=== PATIENT | female | born 1995 | race African-American/Black ===

== ENCOUNTER 2016-08-03 20:24 | Emergency (ER) | payer SELFPAY ==
[~2016-08-03] VITALS: Ht 170.2 cm; Wt 120.0 kg
[2016-08-03 20:25] VITALS: BP 176/112; PULSE 78; RESP 16; TEMP 98.6; O2SAT 98
[2016-08-03] MEDS ORDERED: SODIUM CHLOR 0.9% 1000 ML INJ 1,000 ML IV SCH (23:36)
[2016-08-03] MEDS ORDERED: SODIUM CHLORIDE 0.9% FLUSH 5 ML FLUSH IVF PRN (23:45)
[2016-08-04 00:29] LABS: BACTERIA, URINE RARE /hpf; BLOOD, URINE NEG (NEG); COMMENT (UR) CULT NOT INDICATED; CULTURE IF INDICATED CULT NOT INDICATED; GLUCOSE,URINE NEG (NEG); KETONE, URINE NEG (NEG); MUCUS URINE FEW /lpf (OCC); NITRITE,URINE NEG (NEG); PH, URINE 6.5 (5.0-8.5); SQUAMOUS EPITHELIAL CELL URINE 5 /hpf (0-5); URINE COLOR YELLOW (YELLW/STRAW)
[2016-08-04 00:42] LABS: AUTOMATED NEUTROPHIL # 6.8 TH/MM3 (1.8-7.7); BASOPHIL # 0.1 TH/MM3 (0-0.2); BASOPHIL % 0.8 % (0.0-2.0); EOSINOPHIL # 0.3 TH/MM3 (0-0.4); EOSINOPHIL % 2.4 % (0.0-4.0); HEMATOCRIT 40.1 % (35.0-46.0); HEMO FLAGS DIFF FINAL; LYMPH % 29.4 % (9.0-44.0); LYMPHOCYTE # 3.2 TH/MM3 (1.0-4.8); MEAN CELL VOLUME 84.8 FL (80.0-100.0); MEAN CORPUSCULAR HEMOGLOBIN 28.2 PG (27.0-34.0); MEAN CORPUSCULAR HGB CONC 33.2 % (32.0-36.0); MONO % 5.2 % (0.0-8.0); NEUT % 62.2 % (16.0-70.0); PLATELET COUNT 248 TH/MM3 (150-450); RED BLOOD COUNT 4.73 MIL/MM3 (4.00-5.30); RED CELL DISTRIBUTION WIDTH 13.9 % (11.6-17.2)
[2016-08-04 00:50] LABS: ALT (GPT) 56 U/L (9-42); ANION GAP 7 MEQ/L (5-15); AST (GOT) 22 U/L (16-38); BICARBONATE 28.2 MEQ/L (21.0-32.0); BLOOD UREA NITROGEN 7 MG/DL (7-18); CHLORIDE 105 MEQ/L (98-107); GLOMERULAR FILTRATION RATE 116 ML/MIN (>89); POTASSIUM 3.6 MEQ/L (3.5-5.1); SODIUM (NA) 140 MEQ/L (136-145)
[2016-08-04 00:53] LABS: ALKALINE PHOSPHATASE 135 U/L (45-117); TOTAL BILIRUBIN ADULT 0.5 MG/DL (0.2-1.0)
--- NOTE | 2016-08-04 01:14 | PD ---
HPI Chief Complaint: General Weakness Time Seen by Provider: 23:07 Travel History International Travel<30 days: No Contact w/Intl Traveler<30days: No Traveled to known affect area: No History of Present Illness HPI 21-year-old female arrives to the ER complaining of a state of exhaustion in which she does not desire to do anything in particular. She describes some back pain that radiates to the stomach. She has nausea. She's had no vomiting or fever. No urinary complaint is disclosed. No diarrhea. Appetite is decreased as has been oral intake and oral hydration generally. No abnormal vaginal bleeding or discharge reported. Last menstruation was 2 weeks prior and was slightly longer than normal however uncomplicated otherwise. Symptoms began about a day and a half prior. It was difficult for her to work for about the course of today at a [employer]. [facility] Past Medical History Medical History: Denies Significant Hx ?: Not LMP: 07/24/2016 Past Surgical History Surgical History: No Previous Surgery Social History Alcohol Use: Yes Tobacco Use: Yes Substance Use: Yes (mj OCCASIONALY ) Allergies-Medications (Allergen,Severity, Reaction): Coded Allergies: No Known Allergies (Unverified , 08/03/16) Reported Meds & Prescriptions Reported Meds & Active Scripts Active No Active Prescriptions or Reported Medications Review of Systems Except as stated in HPI: all other systems reviewed are Neg General / Constitutional: No: Fever Gastrointestinal: Positive: Nausea, Abdominal Pain, No: Diarrhea Genitourinary: No: Urgency, Frequency, Discharge, Vaginal Bleeding Physical Exam Narrative GENERAL: 21-year-old female pleasant well-nourished well-developed, BMI 41 SKIN: Warm and dry. HEAD: Atraumatic. Normocephalic. EYES: Pupils equal and round. No scleral icterus. No injection or drainage. ENT: No nasal bleeding or discharge. Mucous membranes pink and moist. NECK: Trachea midline. No JVD. CARDIOVASCULAR: Regular rate and rhythm. No murmur appreciated. RESPIRATORY: No accessory muscle use. Clear to auscultation. Breath sounds equal bilaterally. GASTROINTESTINAL: Abdomen soft, non-tender, nondistended. Hepatic and splenic margins not palpable. Minimal tenderness in the right upper quadrant with abdomen otherwise soft. MUSCULOSKELETAL: No obvious deformities. No clubbing. No cyanosis. No edema. NEUROLOGICAL: Awake and alert. No obvious cranial nerve deficits. Motor grossly within normal limits. Normal speech. PSYCHIATRIC: Appropriate mood and affect; insight and judgment normal. Data Data Last Documented VS Vital Signs Date Time Temp Pulse Resp B/P Pulse Ox O2 Delivery O2 Flow Rate FiO2 08/04/16 01:20 70 16 133/78 98 Room Air 08/03/16 20:25 98.6 Vital signs reviewed. The blood pressure has improved during the patient's ER course. Orders Complete Blood Count With Diff (08/03/16 23:36) Comprehensive Metabolic Panel (08/03/16 23:36) Lipase (08/03/16 23:36) Urinalysis - C+S If Indicated (08/03/16 23:36) Iv Access Insert/Monitor (08/03/16 23:36) Ecg Monitoring (08/03/16 23:36) Oximetry (08/03/16 23:36) Sodium Chlor 0.9% 1000 Ml Inj (Ns 1000 M (08/03/16 23:36) Sodium Chloride 0.9% Flush (Ns Flush) (08/03/16 23:45) Ed Urine Pregnancytest Poc (08/03/16 23:36) Labs Laboratory Tests Test 08/03/16 23:59 White Blood Count 11.0 TH/MM3 Red Blood Count 4.73 MIL/MM3 Hemoglobin 13.3 GM/DL Hematocrit 40.1 % Mean Corpuscular Volume 84.8 FL Mean Corpuscular Hemoglobin 28.2 PG Mean Corpuscular Hemoglobin 33.2 % Concent Red Cell Distribution Width 13.9 % Platelet Count 248 TH/MM3 Mean Platelet Volume 9.8 FL Neutrophils (%) (Auto) 62.2 % Lymphocytes (%) (Auto) 29.4 % Monocytes (%) (Auto) 5.2 % Eosinophils (%) (Auto) 2.4 % Basophils (%) (Auto) 0.8 % Neutrophils # (Auto) 6.8 TH/MM3 Lymphocytes # (Auto) 3.2 TH/MM3 Monocytes # (Auto) 0.6 TH/MM3 Eosinophils # (Auto) 0.3 TH/MM3 Basophils # (Auto) 0.1 TH/MM3 CBC Comment DIFF FINAL Differential Comment Urine Color YELLOW Urine Turbidity HAZY Urine pH 6.5 Urine Specific [place] 1.021 Urine Protein TRACE mg/dL Urine Glucose (UA) NEG mg/dL Urine Ketones NEG mg/dL Urine Occult Blood NEG Urine Nitrite NEG Urine Bilirubin NEG Urine Urobilinogen 2.0 MG/DL Urine Leukocyte Esterase NEG Urine WBC 1 /hpf Urine Squamous Epithelial 5 /hpf Cells Urine Bacteria RARE /hpf Urine Mucus FEW /lpf Microscopic Urinalysis Comment CULT NOT INDICATED Sodium Level 140 MEQ/L Potassium Level 3.6 MEQ/L Chloride Level 105 MEQ/L Carbon Dioxide Level 28.2 MEQ/L Anion Gap 7 MEQ/L Blood Urea Nitrogen 7 MG/DL Creatinine 0.77 MG/DL Estimat Glomerular Filtration 116 ML/MIN Rate Random Glucose 78 MG/DL Calcium Level 9.1 MG/DL Total Bilirubin 0.5 MG/DL Aspartate Amino Transf 22 U/L (AST/SGOT) Alanine Aminotransferase 56 U/L (ALT/SGPT) Alkaline Phosphatase 135 U/L Total Protein 8.3 GM/DL Albumin 3.9 GM/DL Lipase 87 U/L [facility] Medical Decision Making Medical Screen Exam Complete: Yes Emergency Medical Condition: Yes Medical Record Reviewed: Yes Differential Diagnosis UTI anemia electronimbalance Narrative Course CBC & BMP Diagram 08/03/16 23:59 ALT 56 Alk phos 135 Lipase 83 UA no cystitis The patient is resting comfortably and feels better, is alert and in no distress. The patients results and examination findings were discussed. The repeat examination is unremarkable and benign. The history, exam, diagnostic testing, and current condition do not suggest any significant pathology to warrant further testing, continued ED treatment, admission, or surgical evaluation at this point. The vital signs have been stable. The patient does not have uncontrollable pain, intractable vomiting, or other significant symptoms. The patient's condition is stable and appropriate for discharge. The patient will pursue further outpatient evaluation with a primary care physician or other designated or consulting physician as indicated in the discharge instructions. The patient expressed understanding and was agreeable with this plan. Diagnosis Primary Impression: Malaise and fatigue Additional Impressions: Nausea Abdominal pain Qualified Code: R10.9 - Abdominal pain, unspecified location Referrals: Dahiana Vann MD 2 days Additional Instructions: You have a choice when it comes to health care, and we are glad that you chose [facility]. Hopefully, we have met your expectations on today's visit. You are welcome to return to [facility] at any time, as we are committed to meeting the health care needs of our community. Med/Other Pt SpecificInfo: No Change to Meds Scripts No Active Prescriptions or Reported Meds Disposition: 01 DISCHARGE HOME Condition: Erasmo Vernon MD Aug 04, 2016 01:14
[2016-08-04 01:20] VITALS: BP 133/78; PULSE 70; RESP 16; O2SAT 98
== END 2016-08-04 01:42 | disposition home or self-care (01) ==
LOC: NEPC 20:24
DX: R53.83 Other fatigue (principal); R53.81 Other malaise; R11.0 Nausea; R10.11 Right upper quadrant pain; Z72.0 Tobacco use
CPT/HCPCS: 80053; 81001; 83690; 84703; 85025; 99283; J7030

== ENCOUNTER 2016-10-11 12:37 | Emergency (ER) | payer SELFPAY ==
[~2016-10-11] VITALS: Ht 170.2 cm; Wt 121.5 kg
[2016-10-11 12:39] VITALS: PULSE 80; RESP 16; TEMP 97.9; O2SAT 98
--- NOTE | 2016-10-11 12:45 | PD ---
Physical Exam Date Seen by Provider: October 11, 2016 Time Seen by Provider: 12:43 Narrative 21 YOBF YEST WITH COUGH,CONGESTION FEELING COLD AND RUN DOWN. POS DIARRHEA. NO N /V, DYSURIA VVS WAITING FOR BED PLACEMENT Data Data Last Documented VS Vital Signs Date Time Temp Pulse Resp B/P Pulse Ox O2 Delivery O2 Flow Rate FiO2 10/11/16 12:39 97.9 80 16 98 MDM Medical Record Reviewed: Yes Supervised Visit with KATHY: No Scripts No Active Prescriptions or Reported Meds Serge Gutierrez October 11, 2016 12:45
[2016-10-11] MEDS ORDERED: FLUT1SPR5 EACH NARE (12:59)
--- NOTE | 2016-10-11 12:59 | PD ---
HPI . cough and congestion for several days Chief Complaint: Cold / Flu Symptoms Time Seen by Provider: 12:55 Travel History International Travel<30 days: No Contact w/Intl Traveler<30days: No Traveled to known affect area: No History of Present Illness HPI 21-year-old female with no significant past medical history here with cough and congestion for the past several days. Patient reports that her cough is dry in nature and she has been coughing intermittently. She tells me that she is tried [id number] medications such as DayQuil/NyQuil and they've made her worse. She denies any fever or chills. She tells me that she feels sick, therefore she decided to come to the emergency department. PFSH Past Medical History ?: Not LMP: 09/23/16 Social History Alcohol Use: Yes Tobacco Use: Yes Substance Use: Yes (mj OCCASIONALY ) Allergies-Medications (Allergen,Severity, Reaction): Coded Allergies: No Known Allergies (Unverified , 10/11/16) Reported Meds & Prescriptions Reported Meds & Active Scripts Active Flonase Nasal [place] (Fluticasone Nasal [place]) 50 Mcg/Act [place] 50 Mcg EACH NARE BID Review of Systems General / Constitutional: No: Fever Eyes: No: Visual changes HENT: Positive: Congestion, No: Headaches Cardiovascular: No: Chest Pain or Discomfort Respiratory: Positive: Cough (dry), No: Shortness of Breath Gastrointestinal: No: Abdominal Pain Genitourinary: No: Dysuria Musculoskeletal: No: Pain Skin: No Rash Neurologic: No: Weakness Psychiatric: No: Depression Endocrine: No: Polydipsia Hematologic/Lymphatic: No: Easy Bruising Physical Exam Narrative GENERAL: AAO x 3, no acute distress, Well-nourished, well-developed patient. SKIN: Warm and dry. No visible rashes or bruising. HEAD: Normocephalic and atraumatic. EYES: No scleral icterus. No injection or drainage. EOM intact, PERRLA ENT:Mucous membranes pink. Airway patent. Mild postnasal drip on examination. No posterior pharynx erythema, edema or exudates. TMs normal bilaterally. Clear nasal drainage. NECK: Supple, trachea midline. No JVD. No lymphadenopathy CARDIOVASCULAR: Regular rate and rhythm without murmurs, gallops, or rubs. RESPIRATORY: Breath sounds equal bilaterally. No accessory muscle use. No rhonchi or rales. No wheezing GASTROINTESTINAL: Abdomen soft, non-tender, nondistended. EXTREMITIES: No cyanosis or edema. BACK: Nontender without obvious deformity. No CVA tenderness. PSYCH: AAO x 3, normal affect. Data Data Last Documented VS Vital Signs Date Time Temp Pulse Resp B/P Pulse Ox O2 Delivery O2 Flow Rate FiO2 10/11/16 12:56 Room Air 10/11/16 12:39 97.9 80 16 98 MDM Medical Decision Making Medical Screen Exam Complete: Yes Emergency Medical Condition: Yes Medical Record Reviewed: Yes Differential Diagnosis Allergic rhinitis, sinusitis, less likely bacterial sinusitis, less likely pneumonia, less likely influenza Narrative Course This is a 21-year-old female presenting with cough and congestion. Examination was done and reveals no significant finding except for some mild postnasal drip. This appears to be an allergic rhinitis. She can possibly have an underlying virus, but I do not suspect influenza. I will treat her with Flonase. I've advised her to establish with primary care provider for further workup and treatment. I advised her to return to the emergency department if her symptoms return or worsen. Patient verbalized understanding of instructions, questions were answered, and thanked me for their care. I advised them if their condition worsens, please return to the nearest emergency room for further care. Diagnosis Primary Impression: Allergic rhinitis Qualified Code: J30.9 - Allergic rhinitis, unspecified allergic rhinitis trigger, unspecified rhinitis seasonality Additional Impression: Viral infection, unspecified Patient Instructions: Allergic Rhinitis (ED), General Instructions Additional Instructions: Please return to emergency department if your symptoms return or worsen. Follow up with your primary care provider. Take medications as prescribed. As we discussed, please follow-up with your primary care provider. Med/Other Pt SpecificInfo: Prescription(s) given Scripts Fluticasone Nasal [place] (Flonase Nasal [place])50 Mcg/Act Spray50 Mcg EACH NARE BID #1 BOTTLE Ref 0 Prov:Timothy Gutierres MD 10/11/16 Disposition: 01 DISCHARGE HOME Condition: Stable Sonal Waldrop October 11, 2016 12:59
== END 2016-10-11 13:15 | disposition home or self-care (01) ==
LOC: NEPK 12:37
DX: J30.9 Allergic rhinitis, unspecified (principal); B34.9 Viral infection, unspecified; Z72.0 Tobacco use
CPT/HCPCS: 99283

== ENCOUNTER 2016-10-28 22:03 | Emergency (ER) | payer SELFPAY ==
[~2016-10-28 22:03] MED LIST: FLUT1SPR5 EACH NARE
[2016-10-28 22:07] VITALS: BP 139/71; PULSE 92; RESP 16; TEMP 98; O2SAT 98
[2016-10-28 23:25] VITALS: BP 140/101; PULSE 78; RESP 18; O2SAT 98
[2016-10-28] MEDS ORDERED: SODIUM CHLOR 0.9% 1000 ML INJ 1,000 ML IV SCH (23:38)
[2016-10-28] MEDS ORDERED: FAMOTIDINE 20 MG/2 ML VIAL IV PUSH ONE (23:45)
[2016-10-28] MEDS ORDERED: ONDANSETRON HCL 4 MG/2 ML VIAL IVP ONE (23:45)
[2016-10-28] MEDS ORDERED: ALUMINUM/MAGNESIUM/SIMETH 30 ML CUP PO ONE (23:45)
[2016-10-28] MEDS ORDERED: LIDOCAINE VISCOUS 2% SOLN 15 ML UDC PO ONE (23:45)
--- NOTE | 2016-10-29 00:06 | PD ---
HPI Chief Complaint: OD/ Ingestion Time Seen by Provider: 23:25 Travel History International Travel<30 days: No Contact w/Intl Traveler<30days: No Traveled to known affect area: No History of Present Illness HPI Patient is a 21-year-old female who comes in complaining of upper abdominal pain after she took multiple ibuprofen tonight. She says she had a headache earlier today and she took ibuprofen for this. She says she normally gets headaches with her menstrual period and it was no different today. She says she often has to take 10 of the 200 mg tablets for her headache to go away. She says she thinks she took about 15 today and then she had a couple of alcoholic beverages and then started having the abdominal pain. She says she was just taking the medication to make her headache go away. She denies any thoughts of wanting to hurt herself. She denies fever or chills. She is not vomiting. She did not take any other medications. PFSH Past Medical History Medical History: Denies Significant Hx Diminished Hearing: No Immunizations Current: No Tetanus Vaccination: Unknown Influenza Vaccination: No ?: Not LMP: 10/24/16 Past Surgical History Surgical History: No Previous Surgery Social History Alcohol Use: Yes Tobacco Use: No Substance Use: Yes (MARIJUANA) Allergies-Medications (Allergen,Severity, Reaction): Coded Allergies: No Known Allergies (Unverified , 10/28/16) Reported Meds & Prescriptions Reported Meds & Active Scripts Active No Active Prescriptions or Reported Medications Review of Systems Except as stated in HPI: all other systems reviewed are Neg General / Constitutional: No: Fever, Chills Eyes: No: Blurred Vision HENT: Positive: Headaches Cardiovascular: No: Chest Pain or Discomfort Respiratory: No: Shortness of Breath Gastrointestinal: Positive: Nausea, Abdominal Pain, No: Vomiting Genitourinary: No: Dysuria Musculoskeletal: No: Myalgias Skin: No Rash, No Change in Pigmentation Physical Exam Narrative GENERAL: Awake and alert, no acute distress. SKIN: Focused skin assessment warm/dry. HEAD: Atraumatic. Normocephalic. EYES: Pupils equal and round. No scleral icterus. ENT: Mucous membranes pink and moist. NECK: Trachea midline. No JVD. CARDIOVASCULAR: Regular rate and rhythm. No murmur appreciated. RESPIRATORY: No accessory muscle use. Clear to auscultation. Breath sounds equal bilaterally. GASTROINTESTINAL: Abdomen soft, nondistended. Tender to palpation across the upper abdomen. Voluntary guarding, no rebound. MUSCULOSKELETAL: No obvious deformities. No clubbing. No cyanosis. No edema. NEUROLOGICAL: Awake and alert. No obvious cranial nerve deficits. Motor grossly within normal limits. Normal speech. PSYCHIATRIC: Appropriate mood and affect; insight and judgment normal. Data Data Last Documented VS Vital Signs Date Time Temp Pulse Resp B/P Pulse Ox O2 Delivery O2 Flow Rate FiO2 10/28/16 23:25 78 18 140/101 98 Room Air 10/28/16 22:07 98.0 Orders Complete Blood Count With Diff (10/28/16 23:38) Basic Metabolic Panel (Bmp) (10/28/16 23:38) Hepatic Functional Panel (10/28/16 23:38) Lipase (10/28/16 23:38) Urinalysis - C+S If Indicated (10/28/16 23:38) Ed Urine Pregnancytest Poc (10/28/16 23:38) Tylenol (Acetaminophen) (10/28/16 23:38) Salicylates (Aspirin) (10/28/16 23:38) Ondansetron Inj (Zofran Inj) (10/28/16 23:45) Sodium Chlor 0.9% 1000 Ml Inj (Ns 1000 M (10/28/16 23:38) Famotidine Inj (Pepcid Inj) (10/28/16 23:45) Al-Mag Hy-Si 40-40-4 Mg/Ml Liq (Mag-Al P (10/28/16 23:45) Lidocaine 2% Viscous (Xylocaine 2% Visco (10/28/16 23:45) Labs Laboratory Tests Test 10/28/16 23:55 White Blood Count 9.5 TH/MM3 Red Blood Count 4.87 MIL/MM3 Hemoglobin 13.7 GM/DL Hematocrit 40.6 % Mean Corpuscular Volume 83.4 FL Mean Corpuscular Hemoglobin 28.2 PG Mean Corpuscular Hemoglobin 33.9 % Concent Red Cell Distribution Width 13.5 % Platelet Count 231 TH/MM3 Mean Platelet Volume 10.9 FL Neutrophils (%) (Auto) 65.0 % Lymphocytes (%) (Auto) 24.3 % Monocytes (%) (Auto) 6.1 % Eosinophils (%) (Auto) 4.0 % Basophils (%) (Auto) 0.6 % Neutrophils # (Auto) 6.2 TH/MM3 Lymphocytes # (Auto) 2.3 TH/MM3 Monocytes # (Auto) 0.6 TH/MM3 Eosinophils # (Auto) 0.4 TH/MM3 Basophils # (Auto) 0.1 TH/MM3 CBC Comment DIFF FINAL Differential Comment Sodium Level 141 MEQ/L Potassium Level 3.7 MEQ/L Chloride Level 107 MEQ/L Carbon Dioxide Level 27.2 MEQ/L Anion Gap 7 MEQ/L Blood Urea Nitrogen 8 MG/DL Creatinine 0.74 MG/DL Estimat Glomerular Filtration 121 ML/MIN Rate Random Glucose 75 MG/DL Calcium Level 9.1 MG/DL Total Bilirubin 0.4 MG/DL Direct Bilirubin 0.1 MG/DL Indirect Bilirubin 0.3 MG/DL Aspartate Amino Transf 15 U/L (AST/SGOT) Alanine Aminotransferase 27 U/L (ALT/SGPT) Alkaline Phosphatase 123 U/L Total Protein 8.4 GM/DL Albumin 4.1 GM/DL Lipase 104 U/L Salicylates Level 1.8 MG/DL Acetaminophen Level LESS THAN 2.0 MCG/ML MDM Medical Decision Making Medical Screen Exam Complete: Yes Emergency Medical Condition: Yes Differential Diagnosis Pancreatitis versus cholecystitis versus gastritis versus GERD Narrative Course Patient is a 21-year-old female comes in complaining of epigastric pain after taking 15 ibuprofens. She says she was taking it for a headache, she had no intention of hurting herself. Exam shows minor upper abdominal pain. IV established, labs sent. Labs show no acute abnormalities. Patient given GI cocktail and reports feeling better. He spoke to poison control who suggested supportive care. Patient advised to not take so much ibuprofen at once. Advised follow-up with her doctor. Advised to return to the ED as needed for any worsening symptoms. Diagnosis Primary Impression: Abdominal pain Qualified Code: R10.13 - Epigastric pain Patient Instructions: Abdominal Pain (ED), General Instructions Additional Instructions: Avoid taking so much Ibuprofen at one time. Drink plenty of fluids. Follow up with your doctor. Return to the ED as needed for any worsening symptoms. Scripts No Active Prescriptions or Reported Meds Disposition: 01 DISCHARGE HOME Condition: Stable Zuleima Amaya MD Oct 29, 2016 00:06
[2016-10-29 00:16] LABS: AUTOMATED NEUTROPHIL # 6.2 TH/MM3 (1.8-7.7); BASOPHIL # 0.1 TH/MM3 (0-0.2); BASOPHIL % 0.6 % (0.0-2.0); EOSINOPHIL # 0.4 TH/MM3 (0-0.4); HEMATOCRIT 40.6 % (35.0-46.0); HEMO FLAGS DIFF FINAL; LYMPH % 24.3 % (9.0-44.0); LYMPHOCYTE # 2.3 TH/MM3 (1.0-4.8); MEAN CELL VOLUME 83.4 FL (80.0-100.0); MEAN CORPUSCULAR HEMOGLOBIN 28.2 PG (27.0-34.0); MEAN CORPUSCULAR HGB CONC 33.9 % (32.0-36.0); MONO % 6.1 % (0.0-8.0); PLATELET COUNT 231 TH/MM3 (150-450); RED BLOOD COUNT 4.87 MIL/MM3 (4.00-5.30); RED CELL DISTRIBUTION WIDTH 13.5 % (11.6-17.2); WHITE BLOOD COUNT 9.5 TH/MM3 (4.0-11.0)
[2016-10-29 00:51] LABS: ALT (GPT) 27 U/L (9-42); ANION GAP 7 MEQ/L (5-15); AST (GOT) 15 U/L (16-38); BICARBONATE 27.2 MEQ/L (21.0-32.0); BLOOD UREA NITROGEN 8 MG/DL (7-18); CHLORIDE 107 MEQ/L (98-107); GLOMERULAR FILTRATION RATE 121 ML/MIN (>89); POTASSIUM 3.7 MEQ/L (3.5-5.1); SODIUM (NA) 141 MEQ/L (136-145)
[2016-10-29 00:54] LABS: ALKALINE PHOSPHATASE 123 U/L (45-117); INDIRECT BILIRUBIN 0.3 MG/DL (0.0-0.8); TOTAL BILIRUBIN ADULT 0.4 MG/DL (0.2-1.0)
[2016-10-29 00:55] LABS: ACETAMINOPHEN LESS THAN 2.0 MCG/ML (10.0-30.0)
== END 2016-10-29 01:14 | disposition home or self-care (01) ==
LOC: NEPD 22:03
DX: R10.13 Epigastric pain (principal); R51 Headache
CPT/HCPCS: 80048; 80076; 80307; 83690; 84703; 85025; 96361; 96374; 96375; 99284; J2405; J7030

== ENCOUNTER 2016-12-21 00:53 | Emergency (ER) | payer SELFPAY ==
[2016-12-21 00:55] VITALS: BP 174/100; PULSE 88; RESP 16; TEMP 98.3; O2SAT 97
== END 2016-12-21 01:32 | disposition left against medical advice (07) ==
LOC: NED 00:53
DX: R69 Illness, unspecified (principal); Z53.21 Procedure and treatment not carried out due to patient leaving prior to being seen by health care provider
CPT/HCPCS: 99281

== ENCOUNTER 2017-04-16 22:09 | Emergency (ER) | payer SELFPAY ==
[~2017-04-16] VITALS: Ht 170.2 cm; Wt 123.4 kg
[2017-04-16 22:17] VITALS: BP 141/71; PULSE 133; RESP 16; TEMP 97.9; O2SAT 97
--- NOTE | 2017-04-16 23:13 | PD ---
HPI Chief Complaint: Musculoskeletal Complaint Time Seen by Provider: 22:38 Travel History International Travel<30 days: No Contact w/Intl Traveler<30days: No Traveled to known affect area: No History of Present Illness HPI The patient is a 21-year-old female who at approximately 8 PM was trying to move mounted TV from the wall when the TV fell on her and hit her midline frontal area of the scalp. She did lose consciousness. She does complain of a headache. She denies any nausea, vomiting or focal neurologic change. She does complain of right shoulder and midline cervical pain. She denies any numbness or weakness or radiation of pain out of her extremities. She states there is no possibility of . [facility] Past Medical History Medical History: Denies Significant Hx Diminished Hearing: No Immunizations Current: No Tetanus Vaccination: Unknown Influenza Vaccination: No ?: Not LMP: 03/16/17 Past Surgical History Surgical History: No Previous Surgery Social History Alcohol Use: Yes (social) Tobacco Use: Yes Substance Use: Yes (MARIJUANA) Allergies-Medications (Allergen,Severity, Reaction): Coded Allergies: amoxicillin (Verified Allergy, Severe, Hives, itching, 04/16/17) peanut (Verified Allergy, Severe, Hives, itching, 04/16/17) No Known Allergies (Unverified Adverse Reaction, Unknown, 04/16/17) Reported Meds & Prescriptions Reported Meds & Active Scripts Active Reported Claritin (Loratadine) 5 Mg Chew 5 Mg CHEW DAILY Flonase Allergy Relief Children Nasal [place] (Fluticasone Nasal [place]) 50 Mcg/ Act [place] 1 [place] EACH NARE DAILY 50 mcg/spray Flovent Hfa 10.6 GM Inh (Fluticasone Propionate) 44 Mcg/Act Inh 2 Puff INH DAILY Use daily at the same time. Singulair (Montelukast Sodium) 4 Mg Chew 4 Mg CHEW HS Review of Systems Except as stated in HPI: all other systems reviewed are Neg Physical Exam Narrative GENERAL: The patient is alert, oriented 3 and moderate apparent distress with her right shoulder, cervical spine and head pain. Her vital signs are normal except for heart rate of 133. The patient is anxious. SKIN: Focused skin assessment warm/dry. HEAD: Atraumatic. Normocephalic. There is tenderness without any deformity over the frontal skull area. No contusions are noted. EYES: Pupils equal and round. No scleral icterus. No injection or drainage. ENT: No nasal bleeding or discharge. Mucous membranes pink and moist. NECK: Trachea midline. No JVD. There is tenderness without deformity over the posterior spinous processes of the cervical spine. CARDIOVASCULAR: Regular rate and rhythm. No murmur appreciated. RESPIRATORY: No accessory muscle use. Clear to auscultation. Breath sounds equal bilaterally. GASTROINTESTINAL: Abdomen soft, non-tender, nondistended. Hepatic and splenic margins not palpable. MUSCULOSKELETAL: No obvious deformities. No clubbing. No cyanosis. No edema. Right shoulder shows tenderness without deformity. There are no ecchymoses present. NEUROLOGICAL: Awake and alert. No obvious cranial nerve deficits. Motor grossly within normal limits. Normal speech. PSYCHIATRIC: Appropriate mood and affect; insight and judgment normal. Data Data Last Documented VS Vital Signs Date Time Temp Pulse Resp B/P (MAP) Pulse Ox O2 Delivery O2 Flow Rate FiO2 04/16/17 22:17 97.9 133 16 141/71 (94) [address] Brain W/O Iv Contrast(Rout) (04/16/17 22:45) Ct Cerv Spine W/O Contrast (04/16/17 22:45) Shoulder, Complete (>2vws) (04/16/17 22:45) [facility] Medical Decision Making Medical Screen Exam Complete: Yes Emergency Medical Condition: Yes Medical Record Reviewed: Yes Interpretation(s) The CT of the head and neck are normal. Right shoulder x-rays show intact shoulder with no fracture dislocation. Differential Diagnosis Cervical strain, trapezius strain, fracture neck, dislocation/subluxation neck, shoulder dislocation, shoulder fracture, shoulder contusion, intracranial bleed , skull fracture, scalp contusion Narrative Course The patient appears to have a scalp contusion and cervical strain as well as right shoulder strain. There is no clinical or radiographic evidence of any of the other above possibilities. Plan: The patient be given Flexeril and Motrin. Diagnosis Primary Impression: Cervical strain, acute Additional Impressions: Contusion of scalp Right shoulder strain Additional Instructions: The Motrin is taken regularly, 1 tablet 3 times daily. The Flexeril is also taken one tablet 3 times daily. It is possible that the next few days might be worse than it is now, this sometimes happens with muscle strains. Follow-up with your primary care physician next week if you have continued problems. Med/Other Pt SpecificInfo: Prescription(s) given Scripts Cyclobenzaprine (Flexeril) 10 Mg Tab 10 MG PO TID for Muscle Spasm, #30 TAB 0 Refills Prov: Mihir Ferraro MD 04/16/17 Ibuprofen (Ibuprofen) 600 Mg Tab 600 MG PO TID, #33 TAB 0 Refills Prov: Mihir Ferraro MD 04/16/17 Disposition: 01 DISCHARGE HOME Condition: Stable Mihir Ferraro MD Apr 16, 2017 23:13
--- NOTE | 2017-04-16 23:20 | RADRPT ---
EXAM DATE/TIME: 04/16/2017 22:57 [place] COMPARISON: No previous studies available for comparison. INDICATIONS : Trauma, tv fell on head and neck. RADIATION DOSE: 68.33 CTDIvol (mGy) MEDICAL HISTORY : None SURGICAL HISTORY : None. ENCOUNTER: Initial ACUITY: 1 day PAIN SCALE: 7/10 LOCATION: cranial TECHNIQUE: Multiple contiguous axial images were obtained of the head. Using automated exposure control and adj ustment of the mA and/or kV according to patient size, radiation dose was kept as low as reasonably a chievable to obtain optimal diagnostic quality images. DICOM format image data is available electro nically for review and comparison. FINDINGS: CEREBRUM: The ventricles are normal for age. No evidence of midline shift, mass lesion, hemorrhage or acute in farction. No extra-axial fluid collections are seen. POSTERIOR FOSSA: The cerebellum and brainstem are intact. The 4th ventricle is midline. The cerebellopontine angle i s unremarkable. EXTRACRANIAL: The visualized portion of the orbits is intact. SKULL: The calvaria is intact. No evidence of skull fracture. CONCLUSION: Negative noncontrast head CT. Vinh Howard MD on April 16, 2017 at 23:18 Board Certified Radiologist. This report was verified electronically.
--- NOTE | 2017-04-16 23:26 | RADRPT ---
EXAM DATE/TIME: 04/16/2017 22:57 [facility] COMPARISON: No previous studies available for comparison. INDICATIONS : Trauma, tv fell on head and neck. RADIATION DOSE: 26.47 CTDIvol (mGy) MEDICAL HISTORY : None SURGICAL HISTORY : None. ENCOUNTER: Initial ACUITY: 1 day PAIN SCALE: 7/10 LOCATION: Right neck TECHNIQUE: Volumetric scanning of the cervical spine was performed. Multiplanar reconstructions in the sagittal, coronal and oblique axial planes were performed. Using automated exposure control and adjustment o f the mA and/or kV according to patient size, radiation dose was kept as low as reasonably achievable to obtain optimal diagnostic quality images. DICOM format image data is available electronically f or review and comparison. FINDINGS: VERTEBRAE: Normal vertebral body height. ALIGNMENT: No evidence of subluxation. C2-C3: The bony spinal canal is normal in size. No evidence of disc bulge or herniation. The neural forami na are bilaterally patent. C3-C4: The bony spinal canal is normal in size. No evidence of disc bulge or herniation. The neural forami na are bilaterally patent. C4-C5: The bony spinal canal is normal in size. No evidence of disc bulge or herniation. The neural forami na are bilaterally patent. C5-C6: The bony spinal canal is normal in size. No evidence of disc bulge or herniation. The neural forami na are bilaterally patent. C6-C7: The bony spinal canal is normal in size. No evidence of disc bulge or herniation. The neural forami na are bilaterally patent. C7-T1: The bony spinal canal is normal in size. No evidence of disc bulge or herniation. The neural forami na are bilaterally patent. CONCLUSION: Normal CT of the cervical spine. Vinh Howard MD on April 16, 2017 at 23:24 Board Certified Radiologist. This report was verified electronically.
--- NOTE | 2017-04-16 23:30 | RADRPT ---
EXAM DATE/TIME: 04/16/2017 23:08 [facility] COMPARISON: No previous studies available for comparison. INDICATIONS : Right shoulder pain from injury tonight. MEDICAL HISTORY : None. SURGICAL HISTORY : None. ENCOUNTER: Initial ACUITY: 1 day PAIN SCORE: 8/10 LOCATION: Right Shoulder FINDINGS: Multiple view examination of the right shoulder demonstrates no evidence of fracture or dislocation. The glenohumeral and acromioclavicular joints are maintained. There is normal range of motion betwe en internal and external rotation. Bony mineralization is normal. CONCLUSION: Intact right shoulder. Vinh Howard MD on April 16, 2017 at 23:28 Board Certified Radiologist. This report was verified electronically.
[2017-04-16] MEDS ORDERED: LORA1CHW2 CHEW (23:33)
[2017-04-16] MEDS ORDERED: MONT4CHW2 CHEW (23:33)
[2017-04-16] MEDS ORDERED: FLUT1SPR9 EACH NARE (23:33)
[2017-04-16] MEDS ORDERED: FLUTI44I INH (23:33)
[2017-04-16] MEDS ORDERED: IBUP-232 PO (23:58)
[2017-04-16] MEDS ORDERED: CYCL10TA PO (23:58)
[2017-04-17] MEDS ORDERED: KETOROLAC TROMETHAMINE 60 MG/2 ML (IM) VIAL IM ONE
[2017-04-17] MEDS ORDERED: ORPHENADRINE INJ 60 MG/2 ML AMP IM ONE
[2017-04-17 00:20] VITALS: BP 146/72; PULSE 96; RESP 16; O2SAT 98
== END 2017-04-17 00:24 | disposition home or self-care (01) ==
LOC: PHED 22:09
DX: S16.1XXA Strain of muscle, fascia and tendon at neck level, initial encounter (principal); S00.03XA Contusion of scalp, initial encounter; S46.911A Strain of unspecified muscle, fascia and tendon at shoulder and upper arm level, right arm, initial encounter; W20.8XXA Other cause of strike by thrown, projected or falling object, initial encounter; Z88.0 Allergy status to penicillin; Z72.0 Tobacco use; Z79.899 Other long term (current) drug therapy
CPT/HCPCS: 70450; 72125; 73030; 96372; 99285; J1885; J2360